=== PATIENT | female | born 1970 | race Caucasian/White ===

== ENCOUNTER 2016-11-12 10:25 | Day surgery (SDC) | payer OTHER ==
[~2016-11-12] VITALS: Ht 167.6 cm; Wt 99.8 kg
[~2016-11-12 10:25] MED LIST: ASPIR 8181 M1 PO; ASPIRIN EC325 M1 PO; ASPIRIN EC325 M2 PO; ATIVAN0.5 M1 PO; ATIVAN1 MG PO; BABY ASPIRIN81 M1 PO; CAPITAL WITH C473 ML PO; CARDIZEM CD,CA120 MG PO; CARDIZEM90 MG PO; CHLORDIAZEPOXI1 EACH PO; CRESTOR10 MG PO; DILTIAZEM ER90 MG PO; ENDOCET 5-3251 EACH PO; ESTRADIOL0.5 MG PO; FLEXERIL10 MG PO; FLONASE16 G1 BOTH NARES; IMDUR30 MG PO; ISOSORBIDE MONO30 MG PO; LIDODERM 5% P1 PATCH TD; LOPRESSOR25 MG PO; METOPROLOL TA37.5 MG PO; METOPROLOL TART25 MG PO; NEURONTIN100 MG PO; NOHOMEMEDS; PERCOCET 5/31 TABLET PO; PRAVASTATIN SOD20 MG PO; SIMVASTATIN40 M1 PO; SIMVASTATIN40 MG; TOPIRAMATE50 MG PO; VERAPAMIL HCL40 MG PO; ZANTAC150 MG PO; ZYRTEC10 M3 PO
[2016-11-12 11:12] VITALS: BP 118/86
[2016-11-12 16:08] VITALS: BP 97/54
[2016-11-12 17:35] VITALS: BP 102/64
== END 2016-11-12 17:45 | disposition home or self-care (01) ==
LOC: SDC 10:25
PROC: 01NG0ZZ Release Tibial Nerve, Open Approach (ICD-10-PCS; principal; 2016-11-12)
PROC: 0JNQ0ZZ Release Right Foot Subcutaneous Tissue and Fascia, Open Approach (ICD-10-PCS; 2016-11-12)
DX: G57.51 Tarsal tunnel syndrome, right lower limb (principal); M72.2 Plantar fascial fibromatosis; F41.9 Anxiety disorder, unspecified; I25.10 Atherosclerotic heart disease of native coronary artery without angina pectoris; R00.2 Palpitations; Z79.82 Long term (current) use of aspirin; I25.2 Old myocardial infarction
CPT/HCPCS: 93005; J0131; J0690; J1170; J1885; J2250; J2765; J3010; S0020

== ENCOUNTER 2017-12-26 15:10 | Emergency (ER) | payer OTHER ==
[~2017-12-26] VITALS: Ht 167.6 cm; Wt 99.3 kg
[2017-12-26 15:36] LABS: HEMATOCRIT 39.3 % (36.0-46.0); HEMOGLOBIN 13.4 G/DL (11.9-15.5); MCH 29.5 PG (29.0-34.0); MCHC 34.1 G/DL (30.0-36.0); MCV 86.6 FL (83-99); PLATELET COUNT 279 K/uL (156-360); RBC DIS.WIDTH-CV 12.4 % (11.8-14.6); RBC DIS.WIDTH-SD 39.5 % (39-53); RED BLOOD COUNT 4.54 M/uL (3.80-5.20); WHITE BLOOD COUNT 13.1 K/uL (4.1-10.2)
[2017-12-26 15:44] LABS: ALBUMIN 4.3 g/dL (3.2-4.8); CHLORIDE 103 mEq/L (99-109); POTASSIUM 4.5 mEq/L (3.7-5.4); SODIUM 136 mEq/L (136-147)
[2017-12-26 15:46] LABS: GLUCOSE 96 mg/dL (70-99)
[2017-12-26 15:47] LABS: TOTAL PROTEIN 7.8 g/dL (6.4-8.3)
[2017-12-26 15:48] LABS: TOTAL BILIRUBIN 0.8 mg/dL (0.0-1.0)
[2017-12-26 15:50] LABS: ALKALINE PHOSPHATASE 104 IU/L (3-129); CREATININE 0.8 mg/dL (0.6-1.3); GFR ESTIMATE (CALCULATED) > 59 mL/min/
[2017-12-26 15:51] LABS: UREA NITROGEN (BUN) 10 mg/dL (9-23)
[2017-12-26 15:52] LABS: AST (GOT) 32 IU/L (2-34)
[2017-12-26 15:53] LABS: ALT (GPT) 46 IU/L (3-49)
[2017-12-26 15:54] LABS: LIPASE 11 U/L (1.0-51.0)
[2017-12-26 16:00] LABS: TROP-I INTERPRETATION NEGATIVE; TROPONIN-I < 0.01 ng/mL (0.0-0.30)
[2017-12-26 16:01] LABS: QUANTITATIVE HCG < 4.0 MIU/ML
[2017-12-26 16:26] LABS: CREATINE KINASE 57 IU/L (1-294)
[2017-12-26 18:57] LABS: TROP-I INTERPRETATION NEGATIVE; TROPONIN-I < 0.01 ng/mL (0.0-0.30)
[2017-12-26] MEDS ORDERED: TRAMADOL HCL50 MG PO (20:13)
[2017-12-26] MEDS ORDERED: MOTRIN600 MG PO (20:13)
[2017-12-26] MEDS ORDERED: SKELAXIN800 MG PO (20:13)
[2017-12-26 20:50] VITALS: BP 101/74
[2017-12-27] MEDS ORDERED: FIORICET 50-301 EAC1 PO (20:36)
== END 2017-12-26 20:57 | disposition home or self-care (01) ==
LOC: EME 15:10
PROVIDERS: Physician Assistant
DX: R20.2 Paresthesia of skin (principal); M79.1 Myalgia; E78.5 Hyperlipidemia, unspecified; G43.909 Migraine, unspecified, not intractable, without status migrainosus; I25.2 Old myocardial infarction; F41.9 Anxiety disorder, unspecified; Z79.82 Long term (current) use of aspirin; Z90.49 Acquired absence of other specified parts of digestive tract; Z90.710 Acquired absence of both cervix and uterus; Z88.5 Allergy status to narcotic agent; Z88.8 Allergy status to other drugs, medicaments and biological substances
CPT/HCPCS: 70450; 71046; 80053; 82550; 82607; 83690; 84484; 84702; 85027; 93005; 99281; 99285; J1885

== ENCOUNTER 2017-12-27 18:14 | Emergency (ER) | payer OTHER ==
[~2017-12-27] VITALS: Ht 167.6 cm; Wt 98.8 kg
[~2017-12-27 18:14] MED LIST changes: -CARDIZEM CD,CA120 MG PO; +DILTIAZEM 24HR120 MG PO; +MOTRIN600 MG PO; +SKELAXIN800 MG PO; +TRAMADOL HCL50 MG PO
[2017-12-27] MEDS ORDERED: FIORICET 50-301 EAC1 PO (20:36)
[2017-12-27 20:46] VITALS: BP 139/77
== END 2017-12-27 20:48 | disposition home or self-care (01) ==
LOC: EME 18:14
DX: R51 Headache (principal); E78.5 Hyperlipidemia, unspecified; I25.2 Old myocardial infarction; F41.9 Anxiety disorder, unspecified; Z88.5 Allergy status to narcotic agent
CPT/HCPCS: 93005; 99281; 99285; J0780; J7030

== ENCOUNTER 2017-12-30 00:18 | Inpatient (IN) | payer OTHER ==
[~2017-12-30] VITALS: Ht 167.6 cm; Wt 98.7 kg
[~2017-12-30 00:18] MED LIST changes: +FIORICET 50-301 EAC1 PO
[2017-12-30 01:16] LABS: HEMATOCRIT 39.3 % (36.0-46.0); HEMOGLOBIN 13.5 G/DL (11.9-15.5); MCH 29.6 PG (29.0-34.0); MCHC 34.4 G/DL (30.0-36.0); MCV 86.2 FL (83-99); PLATELET COUNT 286 K/uL (156-360); RBC DIS.WIDTH-CV 12.3 % (11.8-14.6); RED BLOOD COUNT 4.56 M/uL (3.80-5.20); WHITE BLOOD COUNT 9.7 K/uL (4.1-10.2)
[2017-12-30 01:26] LABS: CHLORIDE 100 mEq/L (99-109); POTASSIUM 3.6 mEq/L (3.7-5.4); SODIUM 138 mEq/L (136-147)
[2017-12-30 01:27] LABS: GLUCOSE 103 mg/dL (70-99)
[2017-12-30 01:31] LABS: CREATININE 0.9 mg/dL (0.6-1.3); GFR ESTIMATE (CALCULATED) > 59 mL/min/
[2017-12-30 01:32] LABS: UREA NITROGEN (BUN) 12 mg/dL (9-23)
[2017-12-30 01:37] LABS: TROP-I INTERPRETATION NEGATIVE; TROPONIN-I < 0.01 ng/mL (0.0-0.30)
[2017-12-30 05:24] LABS: APPEARANCE SL.HAZY ((CLEAR)); BILIRUBIN NEGATIVE; BLOOD NEGATIVE; COLOR AMBER ((YELLOW)); GLUCOSE (STRIP) NEGATIVE; KETONES 5; LEUKOCYTES NEGATIVE; NITRITE NEGATIVE; PROTEIN (STRIP) 30; SPECIFIC GRAVITY 1.023 (1.000-1.030)
[2017-12-30 05:30] LABS: BACTERIA RARE /HPF; EPITHELIAL CELLS RARE /HPF; HYALINE CASTS 0-5 /LPF; MUCUS 3+ /LPF; RED BLOOD CELLS 0-5 /HPF (0-5); UCUL ADDED? NO; WHITE BLOOD CELLS 0-5 /HPF (0-5)
[2017-12-30 05:57] LABS: ALBUMIN 4.2 g/dL (3.2-4.8)
[2017-12-30 06:00] LABS: TOTAL PROTEIN 8.1 g/dL (6.4-8.3)
[2017-12-30 06:04] LABS: ALKALINE PHOSPHATASE 259 IU/L (3-129); TOTAL BILIRUBIN 0.5 mg/dL (0.0-1.0)
[2017-12-30 06:05] LABS: DIRECT BILIRUBIN 0.3 mg/dL (0.0-0.3)
[2017-12-30 06:06] LABS: LIPASE 20 U/L (1.0-51.0)
[2017-12-30 06:07] LABS: ALT (GPT) 180 IU/L (3-49); AST (GOT) 142 IU/L (2-34)
[2017-12-30] MEDS ORDERED: CIPRO500 MG PO (08:32)
[2017-12-30] MEDS ORDERED: MINIVELLE1 EAC2 TD (08:33)
[2017-12-30] MEDS ORDERED: PROTONIX40 MG PO (08:34)
[2017-12-30] MEDS ORDERED: VICTOZA 2-0.6 MG/0.1 SC (08:34)
[2017-12-30 09:33] LABS: HEPATITIS B SURFACE ANTIGEN Nonreactive; HEPATITIS C ANTIBODY Nonreactive
[2017-12-30 09:34] LABS: ANTI-HEPATITIS A VIRUS (IGM) Nonreactive
[2017-12-30 09:35] LABS: ANTI-HEPATITIS B CORE (IGM) Nonreactive
[2017-12-30 11:38] VITALS: BP 106/66
[2017-12-30 11:44] LABS: TROP-I INTERPRETATION NEGATIVE; TROPONIN-I < 0.01 ng/mL (0.0-0.30)
[2017-12-30 15:29] VITALS: BP 106/62
[2017-12-30 17:39] LABS: TROP-I INTERPRETATION NEGATIVE; TROPONIN-I < 0.01 ng/mL (0.0-0.30)
[2017-12-30 19:20] VITALS: BP 102/57
[2017-12-30 23:48] VITALS: BP 87/54
[2017-12-31 01:30] VITALS: BP 104/59
[2017-12-31 03:54] VITALS: BP 89/53
[2017-12-31 05:49] VITALS: BP 98/53
[2017-12-31 06:24] LABS: HEMATOCRIT 33.3 % (36.0-46.0); MCH 28.5 PG (29.0-34.0); MCHC 32.1 G/DL (30.0-36.0); MCV 88.6 FL (83-99); PLATELET COUNT 277 K/uL (156-360); RBC DIS.WIDTH-CV 12.6 % (11.8-14.6); RBC DIS.WIDTH-SD 41.4 % (39-53); RED BLOOD COUNT 3.76 M/uL (3.80-5.20); WHITE BLOOD COUNT 5.6 K/uL (4.1-10.2)
[2017-12-31 06:27] LABS: HEMOGLOBIN 10.7 G/DL (11.9-15.5)
[2017-12-31 06:37] LABS: ALBUMIN 2.9 G/DL (3.2-4.8); ALKALINE PHOSPHATASE 143 IU/L (3-129); ALT (GPT) 97 IU/L (3-49); AST (GOT) 55 IU/L (2-34); CHLORIDE 111 MEQ/L (99-109); CREATININE 0.6 MG/DL (0.6-1.3); GFR ESTIMATE (CALCULATED) > 59 mL/min/; GLUCOSE 90 mg/dL (70-99); POTASSIUM 3.8 MEQ/L (3.7-5.4); SODIUM 143 MEQ/L (136-147); TOTAL BILIRUBIN 0.3 MG/DL (0.0-1.0); TOTAL PROTEIN 5.1 G/DL (6.4-8.3); UREA NITROGEN (BUN) 9 mg/dL (9-23)
[2017-12-31 06:55] VITALS: BP 90/49
[2017-12-31 12:30] VITALS: BP 108/80
[2017-12-31 12:55] LABS: APPEARANCE CLEAR/COLORLESS; CSF TUBE NUMBER TUBE #4
[2017-12-31 12:56] LABS: RED CELL COUNT 19 /MM^3 (0-1); WHITE CELL COUNT 0 /MM^3 (0-5)
[2017-12-31 12:57] LABS: CSF PROTEIN 41 mg/dL (15-45)
[2017-12-31 12:58] LABS: SPINAL FLD COMMENT NO WBCS SEEN
[2017-12-31 13:05] LABS: APPEARANCE (RECHECK) CLEAR/COLORLESS; CSF TUBE NUMBER (RECHECK) TUBE #1
[2017-12-31 13:06] LABS: RED CELL COUNT (RECHECK) 3 /MM^3 (0-1)
[2017-12-31 13:15] LABS: GLUCOSE, CSF 63 mg/dL (40-80)
[2017-12-31 13:16] LABS: CSF LDH < 25.0 IU/L
[2017-12-31 17:23] VITALS: BP 100/66
[2017-12-31 19:30] LABS: STOOL OCCULT BLD 1ST SPECIMEN NEGATIVE
[2018-01-01 00:22] VITALS: BP 99/56
[2018-01-01 06:41] VITALS: BP 121/67
[2018-01-01 09:43] LABS: HEMATOCRIT 32.3 % (36.0-46.0); HEMOGLOBIN 10.7 G/DL (11.9-15.5); MCH 29.3 PG (29.0-34.0); MCHC 33.1 G/DL (30.0-36.0); MCV 88.5 FL (83-99); PLATELET COUNT 294 K/uL (156-360); RBC DIS.WIDTH-CV 12.8 % (11.8-14.6); RBC DIS.WIDTH-SD 41.6 % (39-53); RED BLOOD COUNT 3.65 M/uL (3.80-5.20); WHITE BLOOD COUNT 6.1 K/uL (4.1-10.2)
[2018-01-01 10:29] LABS: ALKALINE PHOSPHATASE 134 IU/L (3-129); ALT (GPT) 73 IU/L (3-49); CHLORIDE 107 MEQ/L (99-109); CREATININE 0.7 MG/DL (0.6-1.3); GFR ESTIMATE (CALCULATED) > 59 mL/min/; POTASSIUM 3.7 MEQ/L (3.7-5.4); SODIUM 138 MEQ/L (136-147); TOTAL PROTEIN 5.5 G/DL (6.4-8.3); UREA NITROGEN (BUN) 5 mg/dL (9-23)
[2018-01-01 10:31] LABS: AST (GOT) 29 IU/L (2-34); GLUCOSE 162 mg/dL (70-99); TOTAL BILIRUBIN 0.2 MG/DL (0.0-1.0)
[2018-01-01 10:35] VITALS: BP 115/77
[2018-01-01] MEDS ORDERED: LEVAQUIN750 MG PO (10:45)
[2018-01-01] MEDS ORDERED: ONDANSETRON HCL4 MG PO (10:45)
[2018-01-01] MEDS ORDERED: ZOFRAN ODT4 MG PO (11:26)
== END 2018-01-01 12:10 | disposition home or self-care (01) | DRG 195 ==
LOC: EME 00:18 → EDOF 08:32 → 2EAST 08:32 → ENRESERV 08:36 → 2EAST 11:15
PROVIDERS: Emergency Medicine; Hospitalist
PROC: 009U3ZX Drainage of Spinal Canal, Percutaneous Approach, Diagnostic (ICD-10-PCS; principal; 2017-12-31)
DX: J18.9 Pneumonia, unspecified organism (principal); R79.89 Other specified abnormal findings of blood chemistry; D64.9 Anemia, unspecified; E11.9 Type 2 diabetes mellitus without complications; I25.10 Atherosclerotic heart disease of native coronary artery without angina pectoris; E66.9 Obesity, unspecified; Z68.35 Body mass index [BMI] 35.0-35.9, adult; I25.2 Old myocardial infarction; Z79.82 Long term (current) use of aspirin; Z79.84 Long term (current) use of oral hypoglycemic drugs
CPT/HCPCS: 62270; 70450; 71046; 74177; 76705; 77003; 78582; 80048; 80053; 80074; 80076; 81003; 81015; 82272; 82945; 82948; 83605; 83615 91; 83690; 84157; 84484; 85027; 85379; 87040; 87070; 87086; 87102; 87205; 87449; 89051; 93005; 99202; 99281; 99285; A9540; A9567; J0295; J0456; J0696; J1644; J1885; J2405; J7030; J7050; Q0169